=== PATIENT | male | born 1975 | race Caucasian/White ===

== ENCOUNTER 2020-08-21 11:36 | Outpatient (REF) | payer BC, SELFPAY ==
[2020-08-22 23:08] LABS: Lyme Abs Screen <0.90 index
== END 2020-08-21 11:37 | disposition home or self-care (01) ==
LOC: HO.10HDL 11:36
PROVIDERS: Visit Provider Internal Medicine
DX: T14.8XXA Other injury of unspecified body region, initial encounter (principal)
CPT/HCPCS: 86618

== ENCOUNTER 2021-07-26 10:28 | Outpatient (REF) | payer BC, SELFPAY ==
[2021-07-26 10:47] LABS: MANUAL DIFF FLAG NO
[2021-07-26 11:06] LABS: Basophils Percent Auto 0.6 % (0-2); Eosinophils Absolute Auto 0.1 X10*3/uL (0.0-0.4); Eosinophils Percent Auto 1.2 % (0-4); Hematocrit 45.5 % (42.0-52.0); Hemoglobin 15.7 g/dl (14.0-18.0); Imm Gran Abs Auto 0.01 X10*3/uL (0.00-0.03); Imm Gran Pct Auto 0.2 % (0.0-0.4); Lymphocytes Absolute Auto 2.1 X10*3/uL (1.2-4.9); Lymphocytes Percent Auto 31.5 % (20-40); Mean Corpuscular HGB Conc 34.5 g/dl (31.0-36.0); Mean Corpuscular Hemoglobin 30.4 pg (27.0-33.0); Mean Platelet Volume 10.2 fL (9.4-12.4); Monocytes Absolute Auto 0.6 X10*3/uL (0.1-1.2); Monocytes Percent Auto 8.9 % (2-11); Neutrophils Absolute Auto 3.8 x10*3/uL (2.0-8.3); Neutrophils Percent Auto 57.6 % (45-73); Platelet Count 188 X10*3/uL (160-400); Red Blood Count 5.17 X10*6/uL (4.60-5.80); Red Cell Distribution Width 13.2 % (11.0-16.0); White Blood Count 6.5 X10*3/uL (4.8-10.8)
[2021-07-26 11:40] LABS: Alanine Aminotransferase 35 U/L (0-40); Albumin Level 4.5 g/dL (3.5-5.0); Alkaline Phosphatase 68 U/L (39-117); Anion Gap 11 (12-20); Aspartate Amino Transferase 28 U/L (5-37); Bilirubin Total 0.5 mg/dL (0.0-1.0); Blood Urea Nitrogen 19 mg/dL (9-16); Calcium 9.7 mg/dL (8.4-10.2); Carbon Dioxide 30 mmol/L (22-29); Chloride 106 mmol/L (96-108); Cholesterol 220 mg/dL; Estimated Glomerular Filt Rate > 60; Glucose Fasting 98 mg/dL (60-99); HDL Cholesterol 39 mg/dL; LDL Cholesterol Calculated 166 mg/dl; Potassium 4.5 mmol/L (3.3-5.1); Sodium 142 mmol/L (135-145); Total Protein 7.4 g/dL (6.5-8.0); Triglycerides 78 mg/dL
[2021-07-26 11:53] LABS: Vitamin D 25-OH Total 45.3 ng/mL (>30)
[2021-07-26 12:05] LABS: Vitamin B12 529 pg/mL (200-900)
[2021-08-02 07:46] LABS: SARS COV2 IgG Positive (Negative)
== END 2021-07-26 10:29 | disposition home or self-care (01) ==
LOC: HO.LAB 10:28
PROVIDERS: PCP Internal Medicine; Visit Provider Internal Medicine
DX: Z00.00 Encounter for general adult medical examination without abnormal findings (principal); Z01.84 Encounter for antibody response examination; E55.9 Vitamin D deficiency, unspecified; Z86.16 Personal history of COVID-19
CPT/HCPCS: 36415; 80053; 80061; 82306; 82607; 85025; 86769

== ENCOUNTER 2021-11-04 10:32 | Outpatient (REF) | payer BC, SELFPAY ==
[2021-11-04 10:58] LABS: COVID-19 Test Negative (Negative)
== END 2021-11-04 10:33 | disposition home or self-care (01) ==
LOC: HO.LNP 10:32
PROVIDERS: Visit Provider Internal Medicine
DX: Z20.822 Contact with and (suspected) exposure to COVID-19 (principal)
CPT/HCPCS: 87635

== ENCOUNTER 2021-11-12 11:16 | Outpatient (REF) | payer BC, SELFPAY ==
[2021-11-12 11:46] LABS: MANUAL DIFF FLAG NO
[2021-11-12 12:10] LABS: Basophils Absolute Auto 0.1 X10*3/uL (0.0-0.2); Basophils Percent Auto 0.7 % (0-2); Eosinophils Absolute Auto 0.2 X10*3/uL (0.0-0.4); Eosinophils Percent Auto 2.4 % (0-4); Hematocrit 45.6 % (42.0-52.0); Hemoglobin 15.8 g/dl (14.0-18.0); Imm Gran Abs Auto 0.02 X10*3/uL (0.00-0.03); Imm Gran Pct Auto 0.3 % (0.0-0.4); Lymphocytes Absolute Auto 2.5 X10*3/uL (1.2-4.9); Lymphocytes Percent Auto 35.3 % (20-40); Mean Corpuscular HGB Conc 34.6 g/dl (31.0-36.0); Mean Corpuscular Hemoglobin 30.2 pg (27.0-33.0); Monocytes Absolute Auto 0.7 X10*3/uL (0.1-1.2); Monocytes Percent Auto 10.6 % (2-11); Neutrophils Absolute Auto 3.5 x10*3/uL (2.0-8.3); Neutrophils Percent Auto 50.7 % (45-73); Platelet Count 222 X10*3/uL (160-400); Red Blood Count 5.24 X10*6/uL (4.60-5.80); Red Cell Distribution Width 12.5 % (11.0-16.0)
[2021-11-12 12:56] LABS: Alanine Aminotransferase 29 U/L (0-40); Albumin Level 4.3 g/dL (3.5-5.0); Alkaline Phosphatase 64 U/L (39-117); Anion Gap 15 (12-20); Aspartate Amino Transferase 30 U/L (5-37); Bilirubin Total 0.6 mg/dL (0.0-1.0); Blood Urea Nitrogen 17 mg/dL (9-16); C Reactive Protein 0.28 mg/dL (< or = 0.50); Calcium 9.9 mg/dL (8.4-10.2); Carbon Dioxide 27 mmol/L (22-29); Chloride 109 mmol/L (96-108); Estimated Glomerular Filt Rate > 60; Glucose Random 92 mg/dL (60-115); Sodium 146 mmol/L (135-145); Total Protein 7.6 g/dL (6.5-8.0)
== END 2021-11-12 11:17 | disposition home or self-care (01) ==
LOC: HO.LAB 11:16
PROVIDERS: PCP Internal Medicine; Visit Provider Internal Medicine
DX: E78.00 Pure hypercholesterolemia, unspecified (principal); M79.643 Pain in unspecified hand; T14.8XXD Other injury of unspecified body region, subsequent encounter; W57.XXXD Bitten or stung by nonvenomous insect and other nonvenomous arthropods, subsequent encounter
CPT/HCPCS: 36415; 80053; 85025; 86140

== ENCOUNTER 2021-11-21 12:51 | Outpatient (REF) | payer BC, SELFPAY ==
--- NOTE | ~2021-11-21 | CT_ITS ---
EXAMINATION: CT HEAD WITHOUT CONTRAST CLINICAL INFORMATION: Pain. Rule out bleed. COMPARISON: None TECHNIQUE: Contiguous axial imaging was performed from the skull base to vertex without intravenous administration of contrast. This CT examination was performed using dose optimization techniques as appropriate, variously including the following: *Automated exposure control *Adjustment of mA and/or kV according to patient size (this includes techniques or standardized protocols for targeted exams where dose is matched to indication/reason for exam; i.e. extremities or head) *Use of iterative reconstruction technique DLP: 902 mGy-cm FINDINGS: There is no evidence of acute intracranial hemorrhage or territorial infarction. No abnormal mass effect or midline shift is seen. Collier to white matter differentiation is well preserved. No extra-axial fluid collections are identified. The ventricles are normal in size. There is no abnormal attenuation within the brain parenchyma. The osseous structures and soft tissues are normal. There are mild inflammatory changes in the maxillary sinuses. The mastoid air cells and visualized portions of the paranasal sinuses are otherwise clear. CT/CT head/brain wo con IMPRESSION: No acute intracranial findings. Mild inflammatory changes in the maxillary sinuses.
== END 2021-11-21 12:52 | disposition home or self-care (01) ==
LOC: HO.CT 12:51
PROVIDERS: PCP Internal Medicine; Visit Provider Internal Medicine
DX: R51.9 Headache, unspecified (principal)
CPT/HCPCS: 70450

== ENCOUNTER 2022-01-07 11:41 | Outpatient (REF) | payer BC, SELFPAY ==
--- NOTE | ~2022-01-07 | XR_ITS ---
EXAMINATION: XR CHEST CLINICAL INFORMATION: Cervical lymph node COMPARISON: None TECHNIQUE: 2 views of the chest were obtained. FINDINGS: No significant abnormality is noted involving the heart, lungs, mediastinum, bony thorax or soft tissues. XR/XR chest 2V IMPRESSION: Unremarkable examination.
[2022-01-07 12:24] LABS: MANUAL DIFF FLAG NO
[2022-01-07 13:19] LABS: Basophils Absolute Auto 0.1 X10*3/uL (0.0-0.2); Basophils Percent Auto 0.7 % (0-2); Eosinophils Absolute Auto 0.2 X10*3/uL (0.0-0.4); Eosinophils Percent Auto 2.2 % (0-4); Hematocrit 45.7 % (42.0-52.0); Hemoglobin 15.9 g/dl (14.0-18.0); Imm Gran Abs Auto 0.01 X10*3/uL (0.00-0.03); Imm Gran Pct Auto 0.1 % (0.0-0.4); Lymphocytes Absolute Auto 2.7 X10*3/uL (1.2-4.9); Lymphocytes Percent Auto 38.6 % (20-40); Mean Corpuscular HGB Conc 34.8 g/dl (31.0-36.0); Mean Corpuscular Hemoglobin 30.5 pg (27.0-33.0); Mean Corpuscular Volume 87.5 fL (80.0-98.0); Mean Platelet Volume 10.5 fL (9.4-12.4); Monocytes Absolute Auto 0.8 X10*3/uL (0.1-1.2); Monocytes Percent Auto 10.8 % (2-11); Neutrophils Absolute Auto 3.3 x10*3/uL (2.0-8.3); Neutrophils Percent Auto 47.6 % (45-73); Platelet Count 196 X10*3/uL (160-400); Red Blood Count 5.22 X10*6/uL (4.60-5.80); Red Cell Distribution Width 12.9 % (11.0-16.0); White Blood Count 6.9 X10*3/uL (4.8-10.8)
[2022-01-07 13:47] LABS: Amylase 56 U/L (28-100); C Reactive Protein 0.13 mg/dL (< or = 0.50); Lactate Dehydrogenase 188 U/L (118-273)
[2022-01-07 14:04] LABS: Erythrocyte Sedimentation Rate 5 MM/HR (0-15)
== END 2022-01-07 11:42 | disposition home or self-care (01) ==
LOC: HO.XRAY 11:41
PROVIDERS: PCP Internal Medicine; Visit Provider Internal Medicine
DX: M54.2 Cervicalgia (principal); R59.0 Localized enlarged lymph nodes
CPT/HCPCS: 36415; 71046; 82150; 83615; 85025; 85652; 86140

== ENCOUNTER 2022-02-06 11:04 | Outpatient (REF) | payer BC, SELFPAY ==
--- NOTE | ~2022-02-06 | CT_ITS ---
EXAMINATION: CT SOFT TISSUE NECK WITHOUT CONTRAST CLINICAL INFORMATION: Swelling of the right side of the neck. BB placed on the area of interest. COMPARISON: No relevant prior imaging. TECHNIQUE: Helical imaging was performed in the axial plane with generation of coronal and sagittal reformatted images. This CT examination was performed using dose optimization techniques as appropriate, variously including the following: *Automated exposure control *Adjustment of mA and/or kV according to patient size (this includes techniques or standardized protocols for targeted exams where dose is matched to indication/reason for exam; i.e. extremities or head) *Use of iterative reconstruction technique DLP: 421 mGy-cm FINDINGS: At the site of the palpable tissue marker there is a well marginated ovoid fatty lesion within the subcutaneous soft tissues just deep to the platysma muscle measuring up to 1.9 cm in maximal transaxial dimension. This finding represents an encapsulated lipoma. There are no pathologically enlarged cervical lymph nodes. No mediastinal or axillary adenopathy is visualized within the [id number] of this examination. Pharyngeal mucosal spaces are symmetric. Parapharyngeal and retromaxillary fat is preserved. [employer] spaces are symmetric. The parotid and submandibular glands are normal. The tongue base and epiglottis are normal. Preepiglottic fat is preserved. Glottic and subglottic airways are widely patent. The thyroid gland is normal and the remainder of the visualized visceral soft tissues are normal. Lung apices are clear. The aortic arch apex is normal. Carotid spaces are grossly unremarkable. There is no acute osseous finding. Specifically no worrisome lytic or blastic osseous lesion. The skull base is intact. There is no mastoid or middle ear effusion. No active paranasal sinus disease. Limited visualization of the intracranial anatomy reveals no abnormal finding. CT/CT soft tissue neck wo con IMPRESSION: There is a small encapsulated lipoma that coincides with the placement of the tissue marker over the right neck.
== END 2022-02-06 11:05 | disposition home or self-care (01) ==
LOC: HO.CT 11:04
PROVIDERS: PCP Internal Medicine; Visit Provider Internal Medicine
DX: R59.0 Localized enlarged lymph nodes (principal)
CPT/HCPCS: 70490

== ENCOUNTER 2022-07-03 14:20 | Outpatient (REF) | payer BC, SELFPAY ==
[2022-07-03 14:36] LABS: MANUAL DIFF FLAG NO
[2022-07-03 14:41] LABS: Basophils Absolute Auto 0.1 X10*3/uL (0.0-0.2); Basophils Percent Auto 0.7 % (0-2); Eosinophils Absolute Auto 0.1 X10*3/uL (0.0-0.4); Eosinophils Percent Auto 1.9 % (0-4); Hematocrit 43.9 % (42.0-52.0); Hemoglobin 15.3 g/dl (14.0-18.0); Imm Gran Abs Auto 0.01 X10*3/uL (0.00-0.03); Imm Gran Pct Auto 0.1 % (0.0-0.4); Lymphocytes Absolute Auto 2.7 X10*3/uL (1.2-4.9); Mean Corpuscular HGB Conc 34.9 g/dl (31.0-36.0); Mean Corpuscular Hemoglobin 30.3 pg (27.0-33.0); Mean Corpuscular Volume 86.9 fL (80.0-98.0); Mean Platelet Volume 9.7 fL (9.4-12.4); Monocytes Absolute Auto 0.8 X10*3/uL (0.1-1.2); Monocytes Percent Auto 11.2 % (2-11); Neutrophils Absolute Auto 3.3 x10*3/uL (2.0-8.3); Neutrophils Percent Auto 47.1 % (45-73); Platelet Count 203 X10*3/uL (160-400); Red Blood Count 5.05 X10*6/uL (4.60-5.80); Red Cell Distribution Width 13.1 % (11.0-16.0); White Blood Count 6.9 X10*3/uL (4.8-10.8)
[2022-07-03 15:09] LABS: Alanine Aminotransferase 31 U/L (0-40); Albumin Level 4.2 g/dL (3.5-5.0); Alkaline Phosphatase 70 U/L (39-117); Anion Gap 12 (12-20); Aspartate Amino Transferase 32 U/L (5-37); Bilirubin Total 0.6 mg/dL (0.0-1.0); Blood Urea Nitrogen 18 mg/dL (9-16); Calcium 9.1 mg/dL (8.4-10.2); Carbon Dioxide 27 mmol/L (22-29); Chloride 106 mmol/L (96-108); Cholesterol 223 mg/dL; Estimated Glomerular Filt Rate > 60; Glucose Fasting 83 mg/dL (60-99); HDL Cholesterol 39 mg/dL; LDL Cholesterol Calculated 164 mg/dl; Potassium 4.2 mmol/L (3.3-5.1); Sodium 141 mmol/L (135-145); Total Protein 7.2 g/dL (6.5-8.0); Triglycerides 103 mg/dL
[2022-07-03 15:30] LABS: Prostate Specific Antigen Scr 1.52 ng/mL (<0.05-4.0)
== END 2022-07-03 14:21 | disposition home or self-care (01) ==
LOC: HO.LAB 14:20
PROVIDERS: PCP Internal Medicine; Visit Provider Internal Medicine
DX: Z00.00 Encounter for general adult medical examination without abnormal findings (principal); Z12.5 Encounter for screening for malignant neoplasm of prostate
CPT/HCPCS: 36415; 80053; 80061; 84153; 85025

== ENCOUNTER 2023-06-12 17:20 | Outpatient (REF) | payer BC, SELFPAY ==
[2023-06-12 17:35] LABS: MANUAL DIFF FLAG NO
[2023-06-12 17:41] LABS: Basophils Absolute Auto 0.1 X10*3/uL (0.0-0.2); Basophils Percent Auto 0.8 % (0-2); Eosinophils Absolute Auto 0.1 X10*3/uL (0.0-0.4); Eosinophils Percent Auto 1.3 % (0-4); Hematocrit 47.3 % (42.0-52.0); Hemoglobin 16.5 g/dl (14.0-18.0); Imm Gran Abs Auto 0.01 X10*3/uL (0.00-0.03); Imm Gran Pct Auto 0.2 % (0.0-0.4); Lymphocytes Absolute Auto 2.3 X10*3/uL (1.2-4.9); Lymphocytes Percent Auto 36.6 % (20-40); Mean Corpuscular HGB Conc 34.9 g/dl (31.0-36.0); Mean Corpuscular Hemoglobin 30.6 pg (27.0-33.0); Mean Corpuscular Volume 87.6 fL (80.0-98.0); Mean Platelet Volume 9.7 fL (9.4-12.4); Monocytes Absolute Auto 0.6 X10*3/uL (0.1-1.2); Monocytes Percent Auto 9.1 % (2-11); Neutrophils Absolute Auto 3.3 x10*3/uL (2.0-8.3); Platelet Count 202 X10*3/uL (160-400); Red Cell Distribution Width 12.5 % (11.0-16.0); White Blood Count 6.3 X10*3/uL (4.8-10.8)
[2023-06-12 18:17] LABS: Appearance Urine Clear; Color Urine Yellow; Glucose Urine UA Negative (Negative); Leukocyte Esterase Urine Negative (Negative); Nitrite Urine Negative (Negative); Specific Gravity - Urine 1.015 (1.005-1.025); Urine Blood Negative (Negative); Urine Ketones Negative (Negative); Urine Protein Negative (Neg-Trace)
[2023-06-12 18:36] LABS: Alanine Aminotransferase 28 U/L (0-40); Albumin Level 4.5 g/dL (3.5-5.0); Alkaline Phosphatase 65 U/L (39-117); Anion Gap 14 (12-20); Aspartate Amino Transferase 26 U/L (5-37); Bilirubin Total 0.6 mg/dL (0.0-1.0); Blood Urea Nitrogen 18 mg/dL (9-16); C Reactive Protein < 0.10 mg/dL (< or = 0.50); Calcium 9.8 mg/dL (8.4-10.2); Carbon Dioxide 24 mmol/L (22-29); Chloride 106 mmol/L (96-108); Cholesterol 251 mg/dL (<200); Estimated Glomerular Filt Rate > 60; Glucose Random 86 mg/dL (60-115); HDL Cholesterol 40 mg/dL (>40); LDL Cholesterol Calculated 186 mg/dL (<100); Sodium 140 mmol/L (135-145); Total Protein 7.9 g/dL (6.5-8.0); Triglycerides 129 mg/dL (<150)
[2023-06-12 18:50] LABS: Free T4 (Free Thyroxine) 0.88 ng/dL (0.71-1.85); Thyroid Stimulating Hormone 3.14 uIU/mL (0.32-4.0); Vitamin D 25-OH Total 43.6 ng/mL (>30)
[2023-06-12 20:33] LABS: Prostate Specific Antigen 1.49 ng/mL (<0.05-4.0); Vitamin B12 680 pg/mL (200-900)
[2023-06-18 10:17] LABS: Testosterone, Free 101.6 pg/mL (35.0-155.0); Testosterone, Total 701 ng/dL (250-1100)
== END 2023-06-12 17:21 | disposition home or self-care (01) ==
LOC: HO.LAB 17:20
PROVIDERS: PCP Internal Medicine; Visit Provider Internal Medicine
DX: Z00.00 Encounter for general adult medical examination without abnormal findings (principal); Z12.5 Encounter for screening for malignant neoplasm of prostate; E78.00 Pure hypercholesterolemia, unspecified; R53.83 Other fatigue; R35.1 Nocturia
CPT/HCPCS: 36415; 80053; 80061; 81003; 82306; 82550; 82607; 84153; 84402; 84403; 84439; 84443; 85025; 86140

== ENCOUNTER 2024-01-07 11:22 | Outpatient (REF) | payer BC, SELFPAY ==
[2024-01-07 11:35] LABS: MANUAL DIFF FLAG NO
[2024-01-07 11:48] LABS: Basophils Absolute Auto 0.1 X10*3/uL (0.0-0.2); Basophils Percent Auto 0.9 % (0-2); Eosinophils Absolute Auto 0.1 X10*3/uL (0.0-0.4); Eosinophils Percent Auto 1.2 % (0-4); Hematocrit 44.4 % (42.0-52.0); Hemoglobin 15.9 g/dl (14.0-18.0); Imm Gran Abs Auto 0.01 X10*3/uL (0.00-0.03); Imm Gran Pct Auto 0.2 % (0.0-0.4); Lymphocytes Absolute Auto 2.4 X10*3/uL (1.2-4.9); Lymphocytes Percent Auto 36.8 % (20-40); Mean Corpuscular HGB Conc 35.8 g/dl (31.0-36.0); Mean Corpuscular Volume 86.5 fL (80.0-98.0); Monocytes Absolute Auto 0.6 X10*3/uL (0.1-1.2); Monocytes Percent Auto 9.2 % (2-11); Neutrophils Absolute Auto 3.3 x10*3/uL (2.0-8.3); Neutrophils Percent Auto 51.7 % (45-73); Platelet Count 194 X10*3/uL (160-400); Red Blood Count 5.13 X10*6/uL (4.60-5.80); Red Cell Distribution Width 12.6 % (11.0-16.0); White Blood Count 6.4 X10*3/uL (4.8-10.8)
[2024-01-07 12:37] LABS: Alanine Aminotransferase 39 U/L (0-40); Albumin Level 4.5 g/dL (3.5-5.0); Alkaline Phosphatase 58 U/L (39-117); Anion Gap 8 (12-20); Aspartate Amino Transferase 31 U/L (5-37); Bilirubin Total 0.5 mg/dL (0.0-1.0); Blood Urea Nitrogen 16 mg/dL (9-16); Calcium 9.8 mg/dL (8.4-10.2); Carbon Dioxide 29 mmol/L (22-29); Chloride 109 mmol/L (96-108); Cholesterol 249 mg/dL (<200); Estimated Glomerular Filt Rate > 60; Glucose Fasting 92 mg/dL (60-99); HDL Cholesterol 40 mg/dL (>40); LDL Cholesterol Calculated 184 mg/dL (<100); Sodium 142 mmol/L (135-145); Total Protein 7.6 g/dL (6.5-8.0); Triglycerides 126 mg/dL (<150)
[2024-01-07 12:41] LABS: Prostate Specific Antigen 1.27 ng/mL (<0.05-4.0)
== END 2024-01-07 11:23 | disposition home or self-care (01) ==
LOC: HO.LAB 11:22
PROVIDERS: PCP Internal Medicine; Visit Provider Internal Medicine
DX: Z00.00 Encounter for general adult medical examination without abnormal findings (principal); Z12.5 Encounter for screening for malignant neoplasm of prostate; E78.00 Pure hypercholesterolemia, unspecified
CPT/HCPCS: 36415; 80053; 80061; 84153; 85025

== ENCOUNTER 2024-11-02 16:36 | Outpatient (REF) | payer OTHER, SELFPAY ==
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
--- OUTSIDE RECORDS SUMMARY | 2024-11-02 16:44 | XMS_ITS | Clinical Summary ---
Author Organization [facility] Address [address] [place] [address] Phone Care Team Providers Care Managing Broker Name Role Phone Dhruv Chery MD Primary Care Provider [phone] Allergies No known active allergies Medications methocarbamoL (ROBAXIN) 750 mg tablet Take 2 tablets (1,500 mg total) by mouth 4 (four) times a day if needed for muscle spasms for up to 10 days. 40 each 5 Active lidocaine (LIDODERM) 5 % patchIndication s:Acute strain of neck muscle, initial encounter Apply 1 patch topically 1 (one) time each day. Remove & discard patch within 12 hours or as directed by . 30 patch 5 11/10/19 25 Active naproxen (NAPROSYN) 500 mg tablet Take 1 tablet (500 mg total) by mouth 2 (two) times a day with meals for 7 days. 14 tablet 5 10/18/19 25 Active Problems No known active problems Encounters Date Type Department Care Team Description 10/12/2024 - 10/13/2024 2:49 AM [facility] Emergency [address] [place] [address] Discharge Disposition: ED Dismiss - Never Arrived 10/11/2024 6:52 PM EST - 10/11/2024 11:19 PM [facility] Emergency [address] [place] [address] Acute strain of neck muscle, initial encounter (Primary Dx) Discharge Disposition: Home or Self Care from Last 3 Months Social History Tobacco Use Types Packs/Day Years [...] Orientation Straight 10/11/2024 8: 02 PM EST Obstetrics History Last Filed Vital Signs Vital Sign Reading [...] Mass Index 27.32 10/11/2024 4:07 PM EST Plan of Treatment Health Maintenance Due Date Last Done Comments DTaP,Tdap,and Td Vaccines (1 - Tdap) 1992 Hepatitis B Vaccines (1 of 3 - 19+ 3-dose series) 1992 Zoster Vaccines (1 of 2) 2023 COVID-19 Vaccine ( - 2023-2 5 season) 2024 Influenza Vaccine (#1) 2024 Cholesterol Screening (Lipid Panel) 10/12/2024 Colorectal Cancer Screening: Colonoscopy 10/12/2024 Depression Screening 10/12/2024 HIV Screening 10/12/2024 Hepatitis C Screening 10/12/2024 Social Influencers of Health Screening 10/12/2024 HIB Vaccines Aged Out No longer eligi ble based on patient's age to complete this topic HPV Vaccines Aged Out No longer eligi ble based on patient's age to complete this topic Hepatitis A Vaccines Aged Out No long er eligible based on patient's age to complete this topic IPV Vaccines Aged Out No longer eligi ble based on patient's age to complete this topic MMR Vaccines Aged Out No longer eligi ble based on patient's age to complete this topic Meningococcal ACWY Vaccine Aged Out N o longer eligible based on patient's age to complete this topic Pneumococcal Vaccine: Pediat rics (0 to 5 Years) and At-Risk Patients (6 to 64 Years) Aged Out No longer eligible b ased on patient's age to complete this topic RSV Immunization Patients Un bernardino 20 months Aged Out No longer eligible b ased on patient's age to complete this topic Varicella Vaccines Aged Out No longer eligible based on patient's age to complete this topic Procedures Procedure Name Priority Date/Time Associated Diagnosis [...] 4-5 VIEWS STAT 10/11/2024 4:22 PM EST from Last 3 Months Results * CT Angio Neck wo and/or [...] K/mcL LAB HEMETOLOGY METHOD 10/11/2024 9:04 PM [facility] RBC 4.70 4.50 - 5.50 M/mcL LAB HEMETOLOGY METHOD 10/11/2024 9:04 PM [facility] Hemoglobin 14.0 13.5 - 17.5 g/dL LAB HEMETOLOGY METHOD 10/11/2024 9:04 PM [facility] Hematocrit 41.1(L) 42.0 - 54.0 % LAB HEMETOLOGY METHOD 10/11/2024 9:04 PM [facility] MCV 88.2 79.0 - 98.0 FL LAB HEMETOLOGY METHOD 10/11/2024 9:04 PM [facility] MCH 30.0 27.0 - 32.0 pcg LAB HEMETOLOGY METHOD 10/11/2024 9:04 PM [facility] MCHC 34.1 32.0 - 37.0 g/dL LAB HEMETOLOGY METHOD 10/11/2024 9:04 PM [facility] RDW 12.8 11.0 - 15.0 % LAB HEMETOLOGY METHOD 10/11/2024 9:04 PM [facility] Platelets 191 130 - 400 K/mcL LAB HEMETOLOGY METHOD 10/11/2024 9:04 PM [facility] MPV 10.5 7.0 - 11.0 FL LAB HEMETOLOGY METHOD 10/11/2024 9:04 PM [facility] NRBC 0.0 <1.0 % LAB HEMETOLOGY METHOD 10/11/2024 9:04 PM [facility] NRBC Absolute 0.00 <0.10 K/mcL LAB HEMETOLOGY METHOD 10/11/2024 9:04 PM [facility] Neutrophils Relative 40.3 % LAB HEMETOLOGY METHOD 10/11/2024 9:04 PM [facility] Lymphocytes Relative 45.7 % LAB HEMETOLOGY METHOD 10/11/2024 9:04 PM [facility] Monocytes Relative 11.1 % LAB HEMETOLOGY METHOD 10/11/2024 9:04 PM [facility] Eosinophils Relative 2.1 % LAB HEMETOLOGY METHOD 10/11/2024 9:04 PM [facility] Basophils Relative 0.7 % LAB HEMETOLOGY METHOD 10/11/2024 9:04 PM [facility] Immature Granulocytes Relative 0.1 % LAB HEMETOLOGY METHOD 10/11/2024 9:04 PM [facility] Neutrophils Absolute 2.82 1.50 - 7.00 K/mcL LAB HEMETOLOGY METHOD 10/11/2024 9:04 PM EST [facility] Lymphocytes Absolute 3.21 1.00 - 5.00 K/[facility] LAB HEMETOLOGY METHOD 10/11/2024 9:04 PM [facility] Monocytes Absolute 0.78 0.20 - 1.00 K/[facility] LAB HEMETOLOGY METHOD 10/11/2024 9:04 PM EST [facility] Eosinophils Absolute 0.15 0.00 - 0.50 K/[facility] LAB HEMETOLOGY METHOD 10/11/2024 9:04 PM [facility] Basophils Absolute 0.05 0.00 - 0.20 K/[facility] LAB HEMETOLOGY METHOD 10/11/2024 9:04 PM [facility] Immature Granulocytes Absolute 0.01 0.00 - 0.03 K/[facility] LAB HEMETOLOGY METHOD 10/11/2024 9:04 PM [facility] Blood Venous blood specimen / Unknown Venipuncture / Unknown 10/11/2024 8:31 PM EST 10/11/2024 8:57 PM EST Basilio [facility] LAB BLOOD ORDERABLES Yoli l Result Performing Organization Address [facility]/State/ZIP Co de Phone Number [facility] [address] [place] [address], * Basic metabolic panel (10/11/2024 8:31 PM EST) Sodium 138 133 - 145 mmol/L LAB CHEMISTRY METHOD 10/11/2024 9:58 PM [facility] Potassium 4.1 3.5 - 5.5 mmol/L LAB CHEMISTRY METHOD 10/11/2024 9:58 PM [facility] Chloride 109 96 - 110 mmol/L LAB CHEMISTRY METHOD 10/11/2024 9:58 PM [facility] CO2 25 21 - 32 mmol/L LAB CHEMISTRY METHOD 10/11/2024 9:58 PM [facility] Anion Gap 4 3 - 11 LAB CHEMISTRY METHOD 10/11/2024 9:58 PM [facility] Glucose 85 70 - 100 mg/dL LAB CHEMISTRY METHOD 10/11/2024 9:58 PM [facility] BUN 17 5 - 25 mg/dL LAB CHEMISTRY METHOD 10/11/2024 9:58 PM [facility] Creatinine 1.06 0.70 - 1.30 mg/dL LAB CHEMISTRY METHOD 10/11/2024 9:58 PM [facility] eGFR 85 >=60 mL/min/1. 73m2 LAB CHEMISTRY METHOD 10/11/2024 9:58 PM [facility] Comment:Calculation based on the??Chronic Kidney Disease Epidemiology Collaboration (CKD-EPI) equation refit??without adjustment for race. BUN/Creatinine Ratio 16.0 LAB CHEMISTRY METHOD 10/11/2024 9:58 PM [facility] Calcium 9.3 8.5 - 10.5 mg/dL LAB CHEMISTRY METHOD 10/11/2024 9:58 PM [facility] Blood Venous blood specimen / Unknown Venipuncture / Unknown 10/11/2024 8:31 PM EST 10/11/2024 8:57 PM EST us Basilio [facility] LAB BLOOD ORDERABLES Yoli l Result [facility] [address] [place] [address], * XR Thoracic Spine 2 Views (10/11/2024 [...] Signed Date: 10/11/2024 16:35 ET Workstation ID: [id number] Transcribed By: Self Edit Transcribed Date: 10/11/2024 [...] Signed Date: 10/11/2024 16:35 ET Workstation ID: [id number] Transcribed By: Self Edit Transcribed Date: 10/11/2024 [...] Signed Date: 10/11/2024 16:39 ET Workstation ID: [id number] Transcribed By: Self Edit Transcribed Date: 10/11/2024 [...] Signed Date: 10/11/2024 16:39 ET Workstation ID: [id number] Transcribed By: Self Edit Transcribed Date: 10/11/2024 16:36 ET us Yassine Irizarry DO IMG XR PROCEDURES Final Res ult from Last [address] [place] [address] [facility] Care Teams Managing Broker Relationship Specialty Start Date End Date Dhruv Chery MD [address] [place] [address] Dr Anand [place] PCP - General Internal Medicine 10/11/24
--- OUTSIDE RECORDS SUMMARY | 2024-11-02 16:44 | XMS_ITS | Encounter Summary ---
Author Organization [facility] Address [address] [place] [address] Care Team Providers Care Supervisor Furnace Room Name Role Phone Dhruv Chery MD Primary Care Provider [phone] Encounter Details Date Type Department Care Team (Late st Contact Info) Description 10/12/2024 - 10/13/2024 2:49 AM EST Emergency [facility] Emergency [address] [place] [id number] Discharge Disposition: ED Dismiss - Never Arrived Social History Tobacco Use Types Packs/Day Years Used Date Smoking Tobacco: Never Smokeless Tobacco: Current Alcohol Use Standard Drinks/Week Comments Never 0 (1 standard drink = 0.6 oz pur e alcohol) Sex and Gender Information Value Date Recorded Sex Assigned at Male 10/11/2024 8:02 PM EST Legal Sex Male 9:23 AM EST Gender Identity Male 10/11/2024 8:02 PM EST Sexual Orientation Straight 10/11/2024 8: 02 PM EST documented as of this encounter Medications at Time of Discharge [...] 10/11/2024 5 documented as of this encounter Discharge Disposition Disposition Code Departure Means Destination ED Dismiss - Never Arrived documented in this encounter Plan of Treatment Not on file documented as of this encounter Visit Diagnoses Not on filedocumented in this encounter Care Teams Supervisor Furnace Room Relationship Specialty Start Date End Date Dhruv Chery MD [address] [place] [address] Dr Anand [place] PCP - General Internal Medicine 10/11/24 documented as of this encounter
[2024-11-02 16:48] LABS: MANUAL DIFF FLAG NO
[2024-11-02 17:05] LABS: Basophils Absolute Auto 0.1 X10*3/uL (0.0-0.2); Basophils Percent Auto 0.8 % (0-2); Eosinophils Absolute Auto 0.2 X10*3/uL (0.0-0.4); Eosinophils Percent Auto 2.5 % (0-4); Hematocrit 41.8 % (42.0-52.0); Hemoglobin 15.1 g/dl (14.0-18.0); Imm Gran Abs Auto 0.02 X10*3/uL (0.00-0.03); Imm Gran Pct Auto 0.3 % (0.0-0.4); Lymphocytes Absolute Auto 2.9 X10*3/uL (1.2-4.9); Lymphocytes Percent Auto 38.5 % (20-40); Mean Corpuscular HGB Conc 36.1 g/dl (31.0-36.0); Mean Corpuscular Hemoglobin 30.8 pg (27.0-33.0); Mean Corpuscular Volume 85.3 fL (80.0-98.0); Mean Platelet Volume 9.7 fL (9.4-12.4); Monocytes Absolute Auto 0.7 X10*3/uL (0.1-1.2); Monocytes Percent Auto 9.1 % (2-11); Neutrophils Absolute Auto 3.7 x10*3/uL (2.0-8.3); Neutrophils Percent Auto 48.8 % (45-73); Platelet Count 204 X10*3/uL (160-400); Red Cell Distribution Width 12.7 % (11.0-16.0); White Blood Count 7.6 X10*3/uL (4.8-10.8)
[2024-11-02 18:23] LABS: Alanine Aminotransferase 27 U/L (0-40); Albumin Level 4.3 g/dL (3.5-5.0); Alkaline Phosphatase 67 U/L (39-117); Anion Gap 10 (12-20); Aspartate Amino Transferase 33 U/L (5-37); Bilirubin Total 0.5 mg/dL (0.0-1.0); Blood Urea Nitrogen 15 mg/dL (9-16); C Reactive Protein < 0.10 mg/dL (< or = 0.50); Calcium 9.2 mg/dL (8.4-10.2); Carbon Dioxide 26 mmol/L (22-29); Chloride 109 mmol/L (96-108); Cholesterol 214 mg/dL (<200); Estimated Glomerular Filt Rate > 60; Glucose Random 78 mg/dL (60-115); HDL Cholesterol 38 mg/dL (>40); LDL Cholesterol Calculated 156 mg/dL (<100); Potassium 3.8 mmol/L (3.3-5.1); Sodium 141 mmol/L (135-145); Total Protein 7.8 g/dL (6.5-8.0); Triglycerides 104 mg/dL (<150)
[2024-11-02 18:44] LABS: Prostate Specific Antigen 1.51 ng/mL (<0.05-4.0)
== END 2024-11-02 16:37 | disposition home or self-care (01) ==
LOC: HO.LAB 16:36
PROVIDERS: PCP Internal Medicine; Visit Provider Internal Medicine
DX: E78.00 Pure hypercholesterolemia, unspecified (principal); Z12.5 Encounter for screening for malignant neoplasm of prostate; B02.9 Zoster without complications
CPT/HCPCS: 36415; 80053; 80061; 84153; 85025; 86140

== ENCOUNTER 2025-03-20 09:56 | Outpatient (AMB) | payer OTHER, SELFPAY ==
--- NOTE | 2025-03-20 10:09 | MHC.PC.OV ---
Vital Signs 03/20/25 10:21 03/20/25 10:45 Height 5 ft 9 in Weight 84.368 kg BMI 27.5 BP 128/90 H 132/86 Respiration 16 Pulse 77 Pulse Source Pulse Oximeter Temp 97.1 F Temp Source Temporal Artery Scan Pulse Oximetry (%) 99 Oxygen Delivery Method Room Air Intake Visit Reasons: Annual Deputy Attorney General Required: No Accompanied by: Self / Same As Patient Allergies No Known Allergies Allergy (Verified 03/20/25 10:10) Medication List - Last Reconciled 03/20/25 by LEV Dye No Known Home Meds [facility] Medical History (Updated 03/20/25 @ 10:52 by LEV Dye) Eustachian tube dysfunction Lipoma of neck Generalized anxiety disorder Hypercholesterolemia Fall Surgical History History of right inguinal hernia repair Social History Alcohol intake: current Alcohol intake frequency: holidays/special occasions only Patient Tobacco Use Status: Never used Tobacco Physical exam (Primary Care) Vital Signs: Last Vital Signs Temp 97.1 F 03/20/25 10:21 Pulse 77 03/20/25 10:21 Resp 16 03/20/25 10:21 BP 132/86 03/20/25 10:45 Pulse Ox 99 03/20/25 10:21 Oxygen Delivery Method Room Air 03/20/25 10:21 BMI result Body Mass Index 27.5 Tobacco/Smoking Status: Tobacco use Status Patient Tobacco Use Status Never used Tobacco 03/20/25 10:27 PHQ-9: PHQ-9 Score PHQ-9: Total score 0 03/22/25 18:44 Thrive Assessment: Date of Thrive Assessment Date Thrive assessed 03/20/25 03/20/25 10:29 Coding Assessment & Plan Assessment & Plan Orders: Orders Complete Blood Count Auto Diff 03/20/25 Z00.00 - Encounter for general adult medical examination without abnormal findings Lipid Panel 03/20/25 Z00.00 - Encounter for general adult medical examination without abnormal findings Liver Panel 03/20/25 Z00.00 - Encounter for general adult medical examination without abnormal findings Basic Metabolic Panel 03/20/25 Z00.00 - Encounter for general adult medical examination without abnormal findings Hemoglobin A1c 03/20/25 Z00.00 - Encounter for general adult medical examination without abnormal findings Prostate Specific Antigen 03/20/25 Z00.00 - Encounter for general adult medical examination without abnormal findings Referrals Gastroenterology Referral Z12.11 - Encounter for screening for malignant neoplasm of colon
--- NOTE | 2025-03-20 10:20 | A.OFFPC_ITS ---
Vital Signs 03/20/25 10:21 03/20/25 10:45 Height 5 ft 9 in Weight 84.368 kg BMI 27.5 BP 128/90 H 132/86 Respiration 16 Pulse 77 Pulse Source Pulse Oximeter Temp 97.1 F Temp Source Temporal Artery Scan Pulse Oximetry (%) 99 Oxygen Delivery Method Room Air Intake Visit Reasons: Annual Telephone Claims Representative Required: No Accompanied by: Self / Same As Patient Allergies No Known Allergies Allergy (Verified 03/20/25 10:10) Medication List - Last Reconciled 03/20/25 by LEV Dye No Known Home Meds HPI HPI Comments History of Present Illness Details 49-year-old male with history of hyperch olesterolemia, headaches, eczema presents to the office today for management of chronic conditions, to establish care, and for annual physical exam. He is a former patient of Dr. Chery. He reports he lives at home with his and will be traveling to [place] at the end of this week. No significant alcohol use. No cigarette smoking. No illicit drug use or marijuana use. He does follow a healthy diet overall. Hypercholesterolemia-last LDL 156. Not currently on statins. Eczema-intermittent on the hands. Not currently using any medications Concerns: He reports history of right-sided headaches radiating from the right ear into the top of the head. Describes a stabbing sensation. No associated symptoms including otalgia, vertigo, hearing loss, vision changes. He states this only happens once or twice per year. He reports a mechanical fall about 6 weeks ago. Initially with having trouble with deep inspiration. He states that he continues to have pain in the left side of the chest that is [id number]. He does not use any medications for this. No shortness a breath. The pain is more pleuritic in nature. Health Maintenance: Due for first screening colonoscopy Due for PSA ROS: General: No fevers, malaise, unintentional weight loss HEENT: No blurred vision, diplopia. No sore throat, nasal congestion, rhinorrhea, sinus pain, ear pain Neck - no adenopathy Cardiovascular: No chest pain, palpitations, or leg edema Respiratory: No shortness of breath, wheezing, cough GI: No abdominal pain, nausea, vomiting, diarrhea, constipation, melena, hematochezia : No dysuria, hematuria, increased urinary frequency, decreased urinary output MSK: No myalgia, back pain, arthralgias Neuro: No headaches, weakness, paresthesias Psych: no depression/anxiery. No AH/VH. No SI/HI Skin: No rashes or lesions EXAM: Constitutional - Awake and Alert, No apparent distress Eyes - PERRLA, EOMI. Anicteric Nose- septum midline, nares clear, no sinus tenderness Mouth/throat- mucosa moist, tongue and uvula midline, no erythema/edema or tonsillar adenopathy. Neck-trachea midline, thyroid symmetric without palpable nodules, no adenopathy Cardiovascular - S1S2, RRR, No edema Respiratory - Normal lung expansion, Normal respiratory effort, No respiratory distress, CTA bilaterally Gastrointestinal - NT / ND; +BS; No rebound or guarding - No CVA tenderness Extremities - no calf tenderness bilaterally, no swelling Musculoskeletal - Normal inspection, normal ROM Skin - Warm/Dry Neurological - Alert & oriented x3, CN II-XII in tact, 5/5 strength BUE and BLE Psychological - Appropriate affect [facility] Medical History (Updated 03/20/25 @ 10:52 by LEV Dye) Eustachian tube dysfunction Lipoma of neck Generalized anxiety disorder Hypercholesterolemia Fall Surgical History History of right inguinal hernia repair Social History Alcohol intake: current Alcohol intake frequency: holidays/special occasions only Patient Tobacco Use Status: Never used Tobacco Questionnaire PHQ-9 Over the last 2 weeks, how often have you been bothered by any of the following problems? 1. Little interest or pleasure in doing things: not at all 2. Feeling down, depressed, or hopeless: not at all 3. Trouble falling or staying asleep, or sleeping too much: not at all 4. Feeling tired or having little energy: not at all 5. Poor appetite or overeating: not at all 6. Feeling bad about yourself - or that you are a failure or have let yourself or your family down: not at all 7. Trouble concentrating on things, such as reading the newspaper or watching television: not at all 8. Moving or speaking so slowly that other people could have noticed. Or the opposite - being so fidgety or restless that you have been moving around a lot more than usual: not at all 9. Thoughts that you would be better off or of hurting yourself in some way: not at all Total score: 0 Depression Screening Interpretation: Negative Depression Screening Done: Yes 21228 - PHQ-9 Billing: Yes Source: Developed by Drs. Basilio Ibarra, Lynne Taylor, Joby Nguyen and colleagues, with an educational miguel from [employer]. Thrive Questionnaire Date Thrive assessed: 03/20/25 I am a: Patient What is your living situation today?: I have a steady place to live Within the past 12 months, did the food you bought not last and you didn't have the money to get more?: Never true Within the past 12 months, did you worry whether your food would run out before you got money to buy more?: Never true Do you have trouble paying for medicines?: No Do you have trouble getting transportation to medical appointments?: No Do you have trouble paying your heating and electricity bill?: No Do you have trouble taking care of your child, family member or friend?: No Do you have trouble with day-to-day activities such as bathing, preparing meals, shopping, managing finances, etc.?: No Are you currently unemployed and looking for a job?: No Are you interested in more education?: No THRIVE Score: 0 PORTILLO-7 AMB Questionnaire PORTILLO-7 Date PORTILLO - 7 assessed: 03/20/25 Feeling nervous, anxious, or on edge: 0 = Not at all Not being able to stop or control worryin = Not at all Worrying too much about different things: 0 = Not at all Trouble relaxin = Not at all Being so restless that it is hard to sit still: 0 = Not at all Becoming easily annoyed or irritable: 0 = Not at all Feeling afraid as if something awful might happen: 0 = Not at all Total PORTILLO-7 score (0-4 normal; 5-9 mild; 10-14 moderate; 15-21 severe): 0 Source: Developed by Drs. Basilio Ibarra, Lynne Taylor, Joby Nguyen and colleagues, with an educational miguel from [employer]. PORTILLO-7 Assessment Billing PORTILLO-7 Assessment Tool: PORTILLO-7 Assessment 51914 Physical exam (Primary Care) Vital Signs: Last Vital Signs Temp 97.1 F 03/20/25 10:21 Pulse 77 03/20/25 10:21 Resp 16 03/20/25 10:21 BP 132/86 03/20/25 10:45 Pulse Ox 99 03/20/25 10:21 Oxygen Delivery Method Room Air 03/20/25 10:21 BMI result Body Mass Index 27.5 Tobacco/Smoking Status: Tobacco use Status Patient Tobacco Use Status Never used Tobacco 03/20/25 10:27 PHQ-9: PHQ-9 Score PHQ-9: Total score 0 03/20/25 10:40 Depression Screening Interpretation: Negative Thrive Assessment: Date of Thrive Assessment Date Thrive assessed 03/20/25 03/20/25 10:29 Coding Level of Care Code New Pt Prev Care 40-64y(17245) Diagnoses Routine medical exam Z00.00 Hypercholesterolemia E78.00 Rib pain on left side R07.81 Generalized anxiety disorder F41.1 Additional Codes PHQ-9 - 37564 - PHQ-9 Billing: Yes ([id number]) PORTILLO-7 Assessment Billing - PORTILLO-7 Assessment Tool: PORTILLO-7 Assessment 51364 ([id number]) Assessment & Plan Assessment & Plan (1) Routine medical exam: Code(s): Z00.00 - Encounter for general adult medical examination without abnormal findings Plan: 49-year-old male presenting for annual physical exam and to establish care. Plan as below (2) Hypercholesterolemia: Code(s): E78.00 - Pure hypercholesterolemia, unspecified Category: Medical Plan: Lipid panel ordered. ASCVD risk score to be calculated pending results of study to consider initiation of statin medication (3) Rib pain on left side: Code(s): R07.81 - Pleurodynia Category: Medical Plan: XR of the ribs ordered to evaluate for any fracture. We did discuss that there are no interventions required typically for rib fractures and pain management is goal. Recommend topical analgesics, ibuprofen, Tylenol. He declines prescription for tramadol (4) Generalized anxiety disorder: Code(s): F41.1 - Generalized anxiety disorder Category: Medical Plan: Stable overall. Monitor symptoms. Portillo 7 score 0 Plan Routine screening labs as ordered below Continue with screening colonoscopies and PSA Continue following for annual skin exams and use sun protection Annual eye exams Wear seat belt in car Recommend regular exercise and healthy diet Follow up for annual XR ordered Orders: Orders Complete Blood Count Auto Diff 03/20/25 Z00.00 - Encounter for general adult medical examination without abnormal findings Lipid Panel 03/20/25 Z. - Encounter for general adult medical examination without abnormal findings Liver Panel 03/20/25 Z.00 - Encounter for general adult medical examination without abnormal findings Basic Metabolic Panel 03/20/25 Z.00 - Encounter for general adult medical examination without abnormal findings Hemoglobin A1c 03/20/25 Z00.00 - Encounter for general adult medical examination without abnormal findings Prostate Specific Antigen 03/20/25 Z00.00 - Encounter for general adult medical examination without abnormal findings Referrals Gastroenterology Referral Z12.11 - Encounter for screening for malignant neoplasm of colon
[2025-03-20 10:21] VITALS: BP 128/90; PULSE 77; RESP 16; TEMP 36.2; O2SAT 99; BMI 27.5
--- OUTSIDE RECORDS SUMMARY | 2025-03-20 10:31 | XMS_ITS | Clinical Summary ---
Author Organization [facility] Address [address] [place] [address] Phone Care Team Providers Care Ball Thread Machine Tender Name Role Phone Dhruv Chery MD Primary Care Provider [phone] Allergies No known active allergies Medications methocarbamoL (ROBAXIN) 750 mg tablet Take 2 tablets (1,500 mg total) by mouth 4 (four) times a day if needed for muscle spasms for up to 10 days. 40 each 10/11/2024 Active Active Problems No known active problems Social History Tobacco Use Types Packs/Day Years [...] 8:02 PM EST Sexual Orientation Straight 10/11/2024 8 :02 PM EST Obstetrics History Last Filed Vital Signs Vital Sign Reading Time Taken Comments Blood Pressure 151/92 10/11/2024 8:33 PM EST Pulse 81 10/11/2024 8:33 PM EST Temperature 36.5 C (97.7 F) 10/11/2024 4:07 PM EST Respiratory Rate 20 10/11/2024 8:33 PM EST [...] of 3 - 19+ 3-dose series) 1992 Pneumococcal Vaccine: 50+ Ye ars (1 of 1 - PCV) 2023 Zoster Vaccines (1 of 2) 2023 COVID-19 Vaccine ( - 2023-2 5 season) 2024 Cholesterol Screening (Lipid Panel) 10/12/2024 Colorectal Cancer Screening: Colonoscopy 10/12/2024 Depression Screening 10/12/2024 HIV Screening 10/12/2024 Hepatitis C Screening 10/12/2024 Social Influencers of Health Screening 10/12/2024 Influenza Vaccine (Season Ended) 2025 HIB Vaccines Aged Out No longer eligi [...] patient's age to complete this topic Meningococcal B Vaccine Aged Out No l onger eligible based on patient's age to complete [...] on patient's age to complete this topic Insurance [facility] Care Teams Ball Thread Machine Tender Relationship Specialty Start Date End Date Dhruv Chery MD [address] [place] [address] Dr Anand [place] PCP - General Internal Medicine 10/11/24
[2025-03-20 10:45] VITALS: BP 132/86
== END 2025-03-20 11:30 | disposition home or self-care (01) ==
LOC: HO.HMCHD 09:56
PROVIDERS: PCP Internal Medicine; Visit Provider Physician Assistant
DX: Z00.00 Encounter for general adult medical examination without abnormal findings (principal); E78.00 Pure hypercholesterolemia, unspecified; R07.81 Pleurodynia; F41.1 Generalized anxiety disorder

== ENCOUNTER 2025-03-20 09:56 | Outpatient (REF) | payer OTHER, SELFPAY ==
--- NOTE | ~2025-03-20 | XR_ITS ---
EXAMINATION: XR RIBS 2 VIEWS LEFT HISTORY: W19.XXXA - Unspecified fall, initial encounter COMPARISON: Correlation is made with PA and lateral views of the chest dated 01/07/2022. FINDINGS: Three views of the left ribs are submitted. There is a minimally displaced fracture of the anterolateral aspect of the 6th rib and a nondisplaced fracture of the anterolateral aspect of the 7th rib. No additional fracture is seen. There is no pneumothorax. XR/XR ribs LT 2V IMPRESSION: Fractures of the left 6th and 7th ribs as described. Electronically signed by: Basilio Banuelos MD 03/20/2025 11:39 AM EDT
[2025-03-20 11:22] LABS: MANUAL DIFF FLAG NO
[2025-03-20 11:42] LABS: Basophils Absolute Auto 0.1 X10*3/uL (0.0-0.2); Basophils Percent Auto 0.8 % (0-2); Eosinophils Absolute Auto 0.1 X10*3/uL (0.0-0.4); Eosinophils Percent Auto 1.9 % (0-4); Hematocrit 43.7 % (42.0-52.0); Hemoglobin 15.3 g/dl (14.0-18.0); Imm Gran Abs Auto 0.01 X10*3/uL (0.00-0.03); Imm Gran Pct Auto 0.2 % (0.0-0.4); Lymphocytes Absolute Auto 2.4 X10*3/uL (1.2-4.9); Lymphocytes Percent Auto 38.4 % (20-40); Mean Corpuscular Hemoglobin 30.5 pg (27.0-33.0); Mean Corpuscular Volume 87.2 fL (80.0-98.0); Mean Platelet Volume 10.2 fL (9.4-12.4); Monocytes Absolute Auto 0.5 X10*3/uL (0.1-1.2); Monocytes Percent Auto 8.1 % (2-11); Neutrophils Absolute Auto 3.2 x10*3/uL (2.0-8.3); Neutrophils Percent Auto 50.6 % (45-73); Platelet Count 181 X10*3/uL (160-400); Red Blood Count 5.01 X10*6/uL (4.60-5.80); White Blood Count 6.3 X10*3/uL (4.8-10.8)
[2025-03-20 11:53] LABS: Estimated Average Glucose 94 mg/dL; Hemoglobin A1c % 4.9 % (<6.0)
[2025-03-20 12:15] LABS: Alanine Aminotransferase 36 U/L (0-40); Albumin Level 4.6 g/dL (3.5-5.0); Alkaline Phosphatase 72 U/L (39-117); Anion Gap 11 (12-20); Aspartate Amino Transferase 35 U/L (5-37); Bilirubin Direct 0.2 mg/dL (0.0-0.5); Bilirubin Total 0.7 mg/dL (0.0-1.0); Blood Urea Nitrogen 15 mg/dL (9-16); Calcium 9.3 mg/dL (8.4-10.2); Carbon Dioxide 26 mmol/L (22-29); Chloride 108 mmol/L (96-108); Cholesterol 212 mg/dL (<200); Estimated Glomerular Filt Rate > 60; Glucose Random 91 mg/dL (60-115); HDL Cholesterol 39 mg/dL (>40); LDL Cholesterol Calculated 157 mg/dL (<100); Potassium 4.2 mmol/L (3.3-5.1); Sodium 141 mmol/L (135-145); Total Protein 7.3 g/dL (6.5-8.0); Triglycerides 83 mg/dL (<150)
[2025-03-20 12:26] LABS: Prostate Specific Antigen 1.94 ng/mL (<0.05-4.0)
== END 2025-03-20 09:57 | disposition home or self-care (01) ==
LOC: HO.XRAY 09:56
PROVIDERS: PCP Internal Medicine; Visit Provider Physician Assistant
DX: Z00.00 Encounter for general adult medical examination without abnormal findings (principal); S22.42XA Multiple fractures of ribs, left side, initial encounter for closed fracture; Z12.5 Encounter for screening for malignant neoplasm of prostate; Z13.1 Encounter for screening for diabetes mellitus; Z13.220 Encounter for screening for lipoid disorders
CPT/HCPCS: 36415; 71100; 80048; 80061; 80076; 83036; 84153; 85025

== ENCOUNTER → 2025-03-20 11:04 | Outpatient (BNV) | payer OTHER, SELFPAY | PROVIDERS: PCP Internal Medicine; Visit Provider Radiology Diagnostic Radiology | DX: S22.42XA Multiple fractures of ribs, left side, initial encounter for closed fracture (principal) | CPT/HCPCS: 71100 ==

== ENCOUNTER 2025-07-07 10:02 | Outpatient (AMB) | payer OTHER, SELFPAY ==
--- NOTE | 2025-07-07 10:04 | MHC.OFFVIS ---
Vital Signs 07/07/25 10:10 Height 5 ft 9 in Weight 191 lb 5.78 oz BMI 28.3 BP 140/86 H Blood Pressure Location Rt brachial Position Sitting Pulse 75 Intake Visit Reasons: [place] screening Intake Note: New patient in office today for colnoscopy screening. CC: Patient denies having any GI symptoms or concerns. Self Pay Collector Required: No Accompanied by: Self / Same As Patient Allergies No Known Allergies Allergy (Verified 07/07/25 10:14) HPI HPI [place] screening: Details: 50-year-old male here for preprocedural meeting to discuss a screening colonoscopy. He is referred by Estela Arreaga. PMX High cholesterol Anxiety disorder Lipoma of neck * SURGICAL HISTORY Right inguinal hernia repair * ALLERGIES: NKDA * [facility] LABS: Laboratory Tests 03/20/25 11:21 WBC 6.3 Hgb 15.3 Hct 43.7 Plt Count 181 Estimated GFR > 60 Total Bilirubin 0.7 Direct Bilirubin 0.2 AST 35 ALT 36 Alkaline Phosphatase 72 TODAY'S VISIT [facility] Medical History Eustachian tube dysfunction Lipoma of neck Generalized anxiety disorder Hypercholesterolemia Fall Surgical History History of right inguinal hernia repair Social History Alcohol intake: current Alcohol intake frequency: holidays/special occasions only Patient Tobacco Use Status: Never used Tobacco Review of Systems Const Denies fatigue, Denies fever(s), Denies night sweats, Denies poor appetite and Denies weight loss ENT Reports Normal hearing present, Denies dental pain, Denies dysphagia, Denies hearing loss, Denies mouth pain, Denies odynophagia, Denies throat swelling, Denies tongue swelling and Reports other (Dentition adequate) Card Reports no additional complaints Resp Reports no additional complaints GI Details: Denies abdominal pain, Denies melena, Denies bloating, Denies hematochezia, Denies constipation, Denies GI cramping, Denies dysphagia, Denies excessive flatus, Denies early satiety, Denies heartburn, Denies diarrhea, Denies nausea, Denies odynophagia, Denies vomiting and Denies hematemesis Skin/Breast Denies pruritus, Denies lesions, Denies rash and Denies jaundice Neuro Reports Normal hearing present and Denies Abnormal speech present Endo Denies fatigue Aller/Immun Denies throat swelling and Denies tongue swelling Physical Exam Vital Signs: Last Vital Signs Pulse 75 07/07/25 10:10 BP 140/86 H 07/07/25 10:10 BMI result Body Mass Index 28.3 Const General: cooperative, no acute distress, well developed and well groomed Nutritional Appearance: well nourished Orientation/consciousness: oriented to person, oriented to place and oriented to time Limitations: No language barrier HEENT Head: Yes normocephalic and Yes atraumatic Eyes General: appearance normal, both eyes and all related structures Pupils: Equal, round and reactive pupils present Neck Neck: Yes normal visual inspection Resp Effort & Inspection: normal respiratory effort and able to speak in complete sentences Skin General skin exam: no rashes or lesions noted Neuro General: oriented to person, oriented to place and oriented to time Cranial nerves: Yes Equal, round and reactive pupils present and Yes Normal hearing present Speech: No Abnormal speech present Extrem General: Yes normal to inspection Psych Appearance: grossly normal and well kempt Mental Status: mental status grossly normal Speech and movement: Normal speech and movement present Affect: normal affect Attitude: cooperative Thought process: Normal thought process present and not confabulating Thought content: Normal thought content present Insight: Fair insight present (Psych) Judgement: Fair judgement present (Psych) Assessment & Plan Assessment & Plan (1) Pre-op examination: Code(s): Z01.818 - Encounter for other preprocedural examination Category: Medical (2) Encounter for colorectal cancer screening using Cologuard test: Code(s): Z12.11 - Encounter for screening for malignant neoplasm of colon; Z12.12 - Encounter for screening for malignant neoplasm of rectum Category: Medical Plan The patient immediately tells me that he is uncertain if he wants to have a colonoscopy. After a long explanation of the procedure in prep, he seems to have concerns about ?chemicals? in the prep even though I tried to reassure him that these are mostly electrolytes and undigested able glucose. In the end, he would prefer to start with a Cologuard screening so this is initiated. Coding Level of Care Code New Pt Level 3 (80367) Diagnoses Pre-op examination Z01.818 Encounter for colorectal cancer screening using Cologuard test Z12.11; Z12.12
[2025-07-07 10:10] VITALS: BP 140/86; PULSE 75; BMI 28.3
--- OUTSIDE RECORDS SUMMARY | 2025-07-07 11:42 | XMS_ITS | Clinical Summary ---
Author Organization [facility] Address [address] [place] [address] Phone Care Team Providers Care Cutter Barrel Drum Name Role Phone Dhruv Chery MD Primary Care Provider [phone] Allergies No known active allergies Medications methocarbamoL [...] Health Maintenance Due Date Last Done Comments Colorectal Cancer Screening: Colonoscopy 1973 DTaP,Tdap,and Td Vaccines (1 - Tdap) 1992 Hepatitis B Vaccines (1 of 3 - 19+ 3-dose series) 1992 Pneumococcal Vaccine: 50+ Ye ars (1 of 1 - PCV) 2023 Zoster Vaccines (1 of 2) 2023 Depression Screening 09/21/2024 Cholesterol Screening (Lipid Panel) 10/12/2024 HIV Screening 10/12/2024 Hepatitis C Screening 10/12/2024 Social Influencers of Health Screening 10/12/2024 COVID-19 Vaccine (1 - 2023-2 5 season) 2025 Influenza Vaccine (#1) 2025 RSV Immunization Adult Patie nts (1 - 1-dose 75+ series) 2048 HIB Vaccines Aged Out No longer eligi [...] patient's age to complete this topic Insurance [facility] Care Teams Cutter Barrel Drum Relationship Specialty Start Date End Date Dhruv Chery MD [address] [place] [address] Dr Anand MA PCP - General Internal Medicine 10/11/24
== END 2025-07-07 10:44 | disposition home or self-care (01) ==
LOC: HO.HGI 10:03
PROVIDERS: PCP Internal Medicine; Visit Provider Nurse Practitioner
DX: Z12.12 Encounter for screening for malignant neoplasm of rectum (principal)
CPT/HCPCS: 99203